=== PATIENT | female | born 1945 | race Caucasian/White ===

== ENCOUNTER 2022-09-05 18:29 | Inpatient (IN) | payer MEDICARE ==
[2022-09-05] MEDS ORDERED: ONDANSETRON 4 MG/2 ML VIAL IVP STA (18:41)
[2022-09-05] MEDS ORDERED: NALOXONE 0.4 MG/ML 1 ML VIAL IV PRN (19:53)
--- NOTE | 2022-09-05 20:01 | ED ---
General Adult HPI - General Chief complaint: Back Pain/Injury Stated complaint: compression fracture Time Seen by Provider: 09/05/22 18:30 Source: EMS Mode of arrival: EMS Limitations: physical limitation - History of Present Illness Initial comments: This is a 76-year-old female that presents emergency Department as a transfer patient from [facility]. The patient has had thoracic back pain over the last 3 weeks and went into the emergency department for evaluation. On scanning, they found compression fractures of T8 through T11 and sent the patient over for further evaluation. The patient on evaluation denied any numbness or tingling in the lower extremities and denied any urinary or fecal incontinence. The patient was resting in bed comfortably without any acute distress. The patient did have a past medical history including previous breast cancer but is not getting any active treatment and was not told that she had any metastases. The patient denied any other acute pain or complaints at this time. - Related Data Home Medications Medication Instructions Recorded Confirmed Albuterol Sulfate [Albuterol 2 puff PO RT-Q6H 09/05/22 09/05/22 Sulfate Hfa] Benazepril HCl [Lotensin] 40 mg PO DAILY 09/05/22 09/05/22 Budesonide [Pulmicort] 0.5 mg INHALATION RT-BID 09/05/22 09/05/22 Ipratropium-Albuterol Nebulize 3 ml INHALATION RT-QID PRN 09/05/22 09/05/22 [Duoneb 0.5 mg-3 mg/3 ml Soln] Lidocaine-Prilocaine Cream [Emla 1 applic TOPICAL DAILY PRN 09/05/22 09/05/22 Cream 2.5%/2.5%] Montelukast Sodium [Singulair] 10 mg PO HS 09/05/22 09/05/22 OLANZapine [ZyPREXA] 2.5 mg PO HS 09/05/22 09/05/22 amLODIPine [Norvasc] 5 mg PO DAILY 09/05/22 09/05/22 ondansetron HCL [Ondansetron HCl] 8 mg PO Q6H PRN 09/05/22 09/05/22 traMADol HCL 50 mg PO Q6H PRN 09/05/22 09/05/22 Allergies Allergy/AdvReac Type Severity Reaction Status Date / Time sulfamethoxazole AdvReac Rash/Hives Verified 09/05/22 19:04 [From ] trimethoprim [From ] AdvReac Rash/Hives Verified 09/05/22 19:04 Review of Systems ROS Statement: Those systems with pertinent positive or pertinent negative responses have been documented in the HPI. ROS Other: All systems not noted in ROS Statement are negative. Past Medical History Past Medical History: Asthma, Cancer, COPD, Hypertension Additional Past Medical History / Comment(s): Overactive Bladder, Bladder + Breast Cancer History of Any Multi-Drug Resistant Organisms: None Reported Past Surgical History: Breast Surgery, Hysterectomy Past Psychological History: No Psychological Hx Reported Smoking Status: Former smoker Past Alcohol Use History: None Reported Past Drug Use History: None Reported General Exam Limitations: no limitations General appearance: alert, in no apparent distress Head exam: Present: atraumatic, normocephalic, normal inspection Eye exam: Present: normal appearance, PERRL Pupils: Present: normal accommodation ENT exam: Present: normal exam, normal oropharynx, mucous membranes moist Neck exam: Present: normal inspection, full ROM Respiratory exam: Present: normal lung sounds bilaterally Cardiovascular Exam: Present: regular rate, normal rhythm, normal heart sounds GI/Abdominal exam: Present: soft, normal bowel sounds Extremities exam: Present: normal inspection, full ROM Back exam: Present: normal inspection, full ROM Neurological exam: Present: alert, oriented X3, CN II-XII intact Psychiatric exam: Present: normal affect, normal mood Skin exam: Present: warm, dry Course Vital Signs 09/05/22 18:32 Temperature 98.1 F Pulse Rate 105 H Respiratory 18 Rate Blood Pressure 170/81 O2 Sat by Pulse 100 Oximetry Medical Decision Making - Medical Decision Making Was pt. sent in by a medical professional or institution (, PA, LEAF STAMPER, urgent care, hospital, or fci...) When possible be specific @ -Yes, sent from the outside facility, [facility] Did you speak to anyone other than the patient for history (EMS, parent, family, police, friend...)? What history was obtained from this source @ -No Did you review nursing and triage notes (agree or disagree)? Why? @ -I reviewed and agree with nursing and triage notes Were old charts reviewed (outside hosp., previous admission, EMS record, old EKG, old radiological studies, urgent care reports/EKG's, fci records)? Report findings @ -No old charts were reviewed Differential Diagnosis (chest pain, altered mental status, abdominal pain women, abdominal pain men, vaginal bleeding, weakness, fever, dyspnea, syncope, headache, dizziness, GI bleed, back pain, seizure, CVA, palpatations, mental health)? @ -Thoracic vertebral compression fractures, pathologic fractures EKG interpreted by me (3pts min.). @ -None X-rays interpreted by me (1pt min.). @ -None done CT interpreted by me (1pt min.). @ -CT scans were performed at the outside facility U/S interpreted by me (1pt. min.). @ -None done What testing was considered but not performed or refused? (CT, X-rays, U/S, labs)? Why? @ -None What meds were considered but not given or refused? Why? @ -None Did you discuss the management of the patient with other professionals (professionals i.e. , PA, LEAF STAMPER, lab, RT, psych nurse, social security specialist, gluer, teacher, collections officer, welfare case worker)? Give summary @ -Yes, admitting physician Was smoking cessation discussed for >3mins.? @ -No Was critical care preformed (if so, how long)? @ -No Were there social determinants of health that impacted care today? How? (Homelessness, low income, unemployed, alcoholism, drug addiction, transportation, low edu. Level, literacy, decrease access to med. care, assisted, rehab)? @ -No Was there de-escalation of care discussed even if they declined (Discuss DNR or withdrawal of care, Hospice)? DNR status @ -No What co-morbidities impacted this encounter? (DM, HTN, Smoking, COPD, CAD, Cancer, CVA, ARF, Chemo, Hep., AIDS, mental health diagnosis, sleep apnea, morbid obesity)? @ -Previous breast cancer Was patient admitted / discharged? Hospital course, mention meds given and route, prescriptions, significant lab abnormalities, going to OR and other pertinent info. @ -The patient was seen and evaluated in the emergency department. As the patient arrived, I did evaluate the patient and she was resting in bed comfortable B. Vital signs were stable. All laboratory workup was reviewed from the outside facility and all were within normal limits therefore no laboratory workup was 3 drawn at this time. The patient's disc was scanned into the computer read the patient's orthopedic surgeon on-call was contacted prior to the arrival of the patient and he ought arty accepted the patient for admission and would see the patient when she is in the hospital. The patient was to be admitted to the medicine service and was accepted by Dr. Ferris. Dr. Benavides was placed on consult. The patient was admitted in stable condition. Undiagnosed new problem with uncertain prognosis? @ -No Drug Therapy requiring intensive monitoring for toxicity (Heparin, Nitro, Insulin, Cardizem)? @ -No Were any procedures done? @ -No Diagnosis/symptom? @ -Thoracic spinal compression fractures of T8 through T11 Acute, or Chronic, or Acute on Chronic? @ -Acute Uncomplicated (without systemic symptoms) or Complicated (systemic symptoms)? @ -Uncomplicated Side effects of treatment? @ -No Exacerbation, Progression, or Severe Exacerbation? @ -No Poses a threat to life or bodily function? How? (Chest pain, USA, PA, pneumonia, PE, COPD, DKA, ARF, appy, cholecystitis, CVA, Diverticulitis, Homicidal, Suicidal, threat to staff... and all critical care pts) @ -No Disposition Clinical Impression: Compression fracture of T11 vertebra, Compression fracture of T8 vertebra, Compression fracture of T9 vertebra, Compression fracture of T10 vertebra Disposition: ADMITTED IP TO THIS [facility] Condition: Stable Is patient prescribed a controlled substance at d/c from ED?: No Referrals: All Cullen DO [Primary Care Provider] - 1-2 days Time of Disposition: 19:00 Decision to Admit Reason: Admit from EC Decision Date: 09/05/22 Decision Time: 19:00
--- NOTE | 2022-09-06 02:11 | P.HPIM ---
History of Present Illness H&P Date: 09/05/22 Chief Complaint: back pain 76 year old female with breast cancer s/p lumpectomy and chemotherapy last session > 5 weeks ago patient transferred form [facility] for ortho spine evaluation , she presented there with new sudden worsening of thoracic back pain that has been going on for about 3 weeks , denies any falls or trauma , denies any radiculopathy , she had a battery of workup , electrolytes and blood work overall unremarkable, CT of the spine showed compression fracture of T8-T11 , with spinal stenosis of the lumbar spine again patient denies any focal neuro deficits, denies any numbness , tingling or weakness in her extremities , denies any urinary or fecal retention or incontinence Review of Systems Pertinent positives as noted in HPI. All other systems were reviewed and are negative Past Medical History Past Medical History: Asthma, Cancer, COPD, Hypertension Additional Past Medical History / Comment(s): Overactive Bladder, Bladder + [facility] Cancer History of Any Multi-Drug Resistant Organisms: None Reported Past Surgical History: Breast Surgery, Hysterectomy Past Psychological History: No Psychological Hx Reported Smoking Status: Former smoker Past Alcohol Use History: None Reported Past Drug Use History: None Reported Medications and Allergies Home Medications Medication Instructions Recorded Confirmed Type Albuterol Sulfate [Albuterol 2 puff PO RT-Q6H 09/05/22 09/05/22 History Sulfate Hfa] Benazepril HCl [Lotensin] 40 mg PO DAILY 09/05/22 09/05/22 History Budesonide [Pulmicort] 0.5 mg INHALATION RT-BID 09/05/22 09/05/22 History Ipratropium-Albuterol Nebulize 3 ml INHALATION RT-QID PRN 09/05/22 09/05/22 History [Duoneb 0.5 mg-3 mg/3 ml Soln] Lidocaine-Prilocaine Cream [Emla 1 applic TOPICAL DAILY PRN 09/05/22 09/05/22 History Cream 2.5%/2.5%] Montelukast Sodium [Singulair] 10 mg PO HS 09/05/22 09/05/22 History OLANZapine [ZyPREXA] 2.5 mg PO HS 09/05/22 09/05/22 History amLODIPine [Norvasc] 5 mg PO DAILY 09/05/22 09/05/22 History ondansetron HCL [Ondansetron HCl] 8 mg PO Q6H PRN 09/05/22 09/05/22 History traMADol HCL 50 mg PO Q6H PRN 09/05/22 09/05/22 History Allergies Allergy/AdvReac Type Severity Reaction Status Date / Time sulfamethoxazole AdvReac Rash/Hives Verified 09/05/22 19:04 [From ] trimethoprim [From ] AdvReac Rash/Hives Verified 09/05/22 19:04 Physical Exam Vitals: Vital Signs Temp Pulse Resp BP Pulse Ox 09/06/22 01:38 82 14 130/69 100 09/05/22 22:34 93 14 136/49 100 09/05/22 18:32 98.1 F 105 H 18 170/81 100 Intake and Output 09/05/22 09/05/22 09/06/22 14:59 22:59 06:59 Other: Weight 55.338 kg Constitutional: No acute distress, conversant, pleasant Eyes: Anicteric sclerae, moist conjunctiva, Pupils equal round reactive to light ENMT: NC/AT Oropharynx clear, no erythema, or exudates Neck: Supple, no masses, or JVD No carotid bruits No thyromegaly Lungs: Clear to auscultation Clear to percussion Normal respiratory effort, no accessory muscle use Cardiovascular: Heart regular in rate and rhythm, No murmurs, gallops, or rubs No peripheral edema Abdominal: Soft Nontender, no guarding, rebound or rigidity Abdomen moving with respiration Normoactive bowel sounds Skin: Normal temperature, tone, texture, turgor Extremities: No digital cyanosis No clubbing Pedal pulses intact and symmetrical Radial pulses intact and symmetrical No calf tenderness Psychiatric: Alert and oriented to person, place and time Appropriate affect fair judgment Neuro Muscles Strength 4/5 in all 4 extremities Sensation to light touch grossly present throughout Cranial nerves II-XII grossly intact Lymphatics: no palpable cervical or supraclavicular lymph nodes Assessment and Plan Assessment: compression fracture of T8-T11 history of breast cancer s/p lumpectomy and chemotherapy pain control CT imaging showed compression fracture of T8-T11 along with lumbar spinal stenosis ortho spine consult PT eval health care social worker consult , patient requesting ROSS placement blood work and transfer papers reviewed, CBC and metabolic panel overall u nremarkable chronic conditions COPD compensated , resume inhalers full code DVT PPX heparin sc tid
[2022-09-06] MEDS: IPRATROPIUM-ALBUTEROL 3 ML NEB INHALATION PRN ×3 (07:18→19:34)
[2022-09-06] MEDS: BUDESONIDE 0.5 MG/2 ML NEBU INHALATION SCH ×2 (07:18→19:35)
[2022-09-06] MEDS: amLODIPine 5 MG TAB PO SCH (08:06)
[2022-09-06] MEDS: HYDROcodone/APAP 5-325MG 1 EACH TAB PO PRN ×3 (08:07→21:00)
[2022-09-06] MEDS: lisinopriL 20 MG TAB PO SCH (08:07)
[2022-09-06] MEDS ORDERED: MORPHINE SULFATE 2 MG/ML SYRINGE IVP PRN (09:05)
--- NOTE | 2022-09-06 09:22 | P.CNOR ---
History of Present Illness - [facility] Consult date: 09/06/22 Requesting physician: Rodríguez Lane Consult reason: back pain History of present illness: History of Presenting Illness Patient is a pleasant 76-year-old female who presented to the ER via transfer from [facility]. Patient presented to their ER for thoracic pain that has been ongoing for approx 4 weeks, imaging at [facility] reported Compression fractures T8-T11. Patient denies any injuries or falls. She currently denies any radicular pain or numbness/tingling to bilateral upper or lower extremities. Patient states she currently lives with her daughter. She is normally independent and does not use any assisted devices. Patient denies any other orthopedic history. Patient does have a history of left breast cancer that was diagnosed in March 2022. She states she did 7 rounds of chemotherapy and her last treatment was 5 weeks ago. She denies any knowledge of metastatic disease. Review of Systems Pertinent positives and negatives as discussed in HPI, a complete review of systems was performed and all other systems are negative. Physical Examination General: The patient is awake and alert, in no acute distress Skin: Skin is warm and dry with no obvious rashes or lesions. Hairy patches absent, no dorsal skin dimples, no cafe au lait spots, and no surgical incisions. Eye: Pupils are equal, round and reactive to light, extra-ocular movements are intact; there is normal conjunctiva bilaterally. Neck: The neck is supple, there is no tenderness and ROM intact. Cardiovascular: There is a regular rate and rhythm. No murmur, rub or gallop is appreciated. Respiratory: Lungs are clear to auscultation, respirations are non-labored, breath sounds are equal. Gastrointestinal: Soft, non-distended, non-tender abdomen. Back: There is tenderness to palpation in the midline lumbar and thoracic region. There is no obvious deformity. Musculoskeletal: ROM limited secondary to pain and stiffness. Shoulder abduction 5/5, elbow flexors 5/5, wrist dorsiflexors 5/5. finger abductor 5/5, bolt machine operator 5/5, hip flexor 5/5, knee flexor 5/5, ankle dorsiflexor 5/5, ankle plantarflexion 5/5 and extensor hallucis 5/5. Neurological: CN 2-12 intact. There are no obvious motor or sensory deficits. Movement and coordination equal and intact. Sensory exam to light touch intact C5-T1 and intact from L2-S1. Reflexes 2/4 in bilateral upper and lower extremities. Negative Hoffmans, babinski, and clonus signs. Psychiatric: Cooperative, appropriate mood & affect, normal judgment. Assessment and Plan Possible T8-T11 compression fracture Thoracic pain -Appreciate consult and team management -Ordered CT of Thoracic Spine -TLSO brace, script left on chart -Pain management, recommend anti-inflammatory or steroids if needed. -PT/OT, WBAT We will continue to follow patient through hospital stay. I reviewed and discussed this case with my attending Dr. Benavides, whom has reviewed this chart and films and is in agreement with assessment and plan of care as outlined above. I have personally seen and examined the patient, performed the documentation and the assessment and plan as written. Number of minutes spent on the visit: 20m. Past Medical History Past Medical History: Asthma, Cancer, COPD, Hypertension Additional Past Medical History / Comment(s): Overactive Bladder, Bladder + Breast Cancer History of Any Multi-Drug Resistant Organisms: None Reported Past Surgical History: Breast Surgery, Hysterectomy Past Psychological History: No Psychological Hx Reported Smoking Status: Former smoker Past Alcohol Use History: None Reported Past Drug Use History: None Reported Medications and Allergies Home Medications Medication Instructions Recorded Confirmed Type Albuterol Sulfate [Albuterol 2 puff PO RT-Q6H 09/05/22 09/05/22 History Sulfate Hfa] Benazepril HCl [Lotensin] 40 mg PO DAILY 09/05/22 09/05/22 History Budesonide [Pulmicort] 0.5 mg INHALATION RT-BID 09/05/22 09/05/22 History Ipratropium-Albuterol Nebulize 3 ml INHALATION RT-QID PRN 09/05/22 09/05/22 History [Duoneb 0.5 mg-3 mg/3 ml Soln] Lidocaine-Prilocaine Cream [Emla 1 applic TOPICAL DAILY PRN 09/05/22 09/05/22 History Cream 2.5%/2.5%] Montelukast Sodium [Singulair] 10 mg PO HS 09/05/22 09/05/22 History OLANZapine [ZyPREXA] 2.5 mg PO HS 09/05/22 09/05/22 History amLODIPine [Norvasc] 5 mg PO DAILY 09/05/22 09/05/22 History ondansetron HCL [Ondansetron HCl] 8 mg PO Q6H PRN 09/05/22 09/05/22 History traMADol HCL 50 mg PO Q6H PRN 09/05/22 09/05/22 History Allergies Allergy/AdvReac Type Severity Reaction Status Date / Time sulfamethoxazole AdvReac Rash/Hives Verified 09/05/22 19:04 [From ] trimethoprim [From ] AdvReac Rash/Hives Verified 09/05/22 19:04
--- NOTE | 2022-09-06 10:30 | CT ---
EXAMINATION TYPE: CT thoracic spine wo con DATE OF EXAM: 09/06/2022 COMPARISON: None HISTORY: Lower back pain, multiple thoracic compression fractures-lower CT DLP: 567.3 mGycm Automated exposure control for dose reduction was used. Unenhanced CT of the thoracic spine was performed with axial coronal and sagittal images reviewed. Jett ne and soft tissue window settings are submitted. FINDINGS: There are mild to moderate compression fractures which appear to be acute extending from T9 through T 12. At T9 there is mild sclerosis and loss of height estimated at 10%. No bony retropulsion. Paraspinal h ematoma. No bony destructive process. Middle and posterior columns are intact. At T10 loss of height is estimated at 20-30%. No definite sclerosis or bony destructive process. No b chris retropulsion. Paraspinal hematoma seen. Middle and posterior columns are intact. At T11 there is moderate compression fracture with loss of height estimated at 50%. No definite bony retropulsion. Bony sclerosis noted without definite destructive process. Paraspinal hematoma seen. Mi ddle and posterior columns are intact. At T12 there is a mild superior endplate compression fracture without significant loss of height. No bony retropulsion seen. Paraspinal hematoma noted. At L1 appears to be mild chronic loss of height of the superior endplate as well as at T7. No additio nal fractures are seen. No obvious bony destructive process evident. IMPRESSION: 1. Acute compression fractures T9-T12 as discussed above.
[2022-09-06] MEDS: HEPARIN SODIUM,PORCINE/PF 5,000 UNIT/0.5 ML SYRINGE SQ SCH ×2 (10:38→15:45)
[2022-09-06] MEDS: SODIUM CHLORIDE 0.45% 1,000 ML IV SCH ×2 (10:42→22:50)
[2022-09-06] MEDS: ALBUTEROL HFA INHALER INHALATION SCH ×2 (11:59→19:35)
--- NOTE | 2022-09-06 14:44 | P.PN ---
Subjective Progress Note Date: 09/06/22 Patient is a 76-year-old female with breast cancer status post lumpectomy on chemotherapy with last session greater than 4 weeks ago who was transferred here from [facility] for orthospine evaluation due to multiple thoracic spine compression fractures. Patient also has a history of asthma, COPD, and hypertension. In the ER at [facility] she underwent a CT chest which showed a compression fracture of T8 through T10 with possible T11 compression fracture. Her labs were within normal limits. She was evaluated by orthospine who recommended a TLSO brace and pain management. Patient seen and examined at bedside. She states that her pain is controlled when in bed, however when she gets up and moves she has severe back pain. She does state when she sits forward in bed she feels the pain again come back in her thoracic spine. She denies any nausea or vomiting. She states she's been getting weaker at home. She is wondering if she would benefit from rehab. General: nontoxic, no distress, frail, appears at stated age Derm: warm, dry Head: atraumatic, normocephalic, symmetric Eyes: EOMI, no lid lag, anicteric sclera Mouth: no lip lesion, mucus membranes moist Cardiovascular: S1S2 reg, no murmur, positive posterior tibial pulse bilateral, Lungs: Decreased breath sounds bilateral, no rhonchi, no rales , no accessory muscle use Ext: no gross muscle atrophy, no edema, no contractures, kyphosis Neuro: CN II-XI grossly intact, no focal neuro deficits Psych: Alert, oriented, appropriate affect Assessment/plan: Intractable back pain secondary to T8 through T11 compression fractures suspect related to breast cancer -Orthopedic spine surgery recommendations appreciated. Plan is for TLSO brace -Repeat CT here demonstrates T9 through T12 compression fractures with possible paraspinal hematoma. We'll discuss with orthospine. -Add morphine IV push, continue with [place] -PT/OT evaluation. 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 Active Medications Generic Name Dose Route Start Last Admin Trade Name Freq PRN Reason Stop Dose Admin Hydrocodone Bitart/Acetaminophen 1 each 09/06/22 02:03 09/06/22 08:07 Hydrocodone/Apap 5-325mg 1 Each Tab PO 1 each Q4HR PRN Administration Pain Albuterol Sulfate 2 puff 09/06/22 14:00 09/06/22 11:59 Albuterol Hfa Inhaler INHALATION Not Given RT-Q6H SNOW Albuterol/Ipratropium 3 ml 09/06/22 02:19 09/06/22 11:59 Ipratropium-Albuterol 3 Ml Neb INHALATION 3 ml RT-QID PRN Administration Shortness Of Breath Or Wheezing Amlodipine Besylate 5 mg 09/06/22 09:00 09/06/22 08:06 Amlodipine 5 Mg Tab PO 5 mg DAILY SNOW Administration Budesonide 0.5 mg 09/06/22 08:00 09/06/22 07:18 Budesonide 0.5 Mg/2 Ml Nebu INHALATION 0.5 mg RT-BID SNOW Administration Heparin Sodium (Porcine) 5,000 unit 09/06/22 08:00 09/06/22 10:38 Heparin Sodium,Porcine/Pf 5,000 Unit/0.5 Ml Syringe SQ Not Given Q8HR SNOW Sodium Chloride 1,000 mls @ 75 mls/hr 09/06/22 09:15 09/06/22 10:42 Saline 0.45% IV 75 mls/hr .[id number] SNOW Administration Lisinopril 40 mg 09/06/22 09:00 09/06/22 08:07 Lisinopril 20 Mg Tab PO 40 mg DAILY SNOW Administration Montelukast Sodium 10 mg 09/06/22 21:00 Montelukast 10 Mg Tab PO HS SNOW Morphine Sulfate 2 mg 09/06/22 09:05 Morphine Sulfate 2 Mg/Ml Syringe IVP Q6HR PRN Pain/Discomfort Naloxone HCl 0.2 mg 09/05/22 19:53 Naloxone 0.4 Mg/Ml 1 Ml Vial IV Q2M PRN Opioid Reversal Olanzapine 2.5 mg 09/06/22 21:00 Olanzapine 2.5 Mg Tab PO HS [facility] Objective - Vital Signs Vital signs: Vital Signs Temp 98.4 F 09/06/22 10:42 Pulse 100 09/06/22 12:09 Resp 18 09/06/22 10:42 BP 117/70 09/06/22 10:42 Pulse Ox 95 09/06/22 10:42 FiO2 Intake & Output 09/05/22 09/06/22 09/06/22 18:59 06:59 18:59 Weight 55.338 kg 55.338 kg Other: # Voids 1
--- NOTE | 2022-09-06 15:11 | P.PN ---
Progress Note - Text Progress Note Date: 09/06/22 CT is reviewed of the thoracic and lumbar spine which demonstrates multiple compression type fractures from T9 to T12. T11 is about 50% compressed although it is sclerotic and likely a little bit older T9 appears new work with 30% compression and wedging. These all contribute to a kyphotic alignment at these levels. No retropulsion or severe stenosis noted otherwise. Would recommend MRI of the thoracic spine to visualize the acuity of fractures as she may be a candidate for kyphoplasty. Would likely need kyphoplasty in 2 T9 we will see how MRI looks. She potentially could be boarded for Monday for this. patient does have a history of breast cancer that this also wants MRI to look for any metastatic lesions or possible pathologic nature to these fractures. Kyphoplasty would allow for biopsy at the same time.
--- NOTE | 2022-09-06 18:06 | P.CONS ---
History of Present Illness - Reason for Consult Consult date: 09/06/22 breast cancer Requesting physician: Lucila Ferris - Chief Complaint back pain - History of Present Illness Ms Chambers is a 76 yo female pt of Dr. Huynh with PMH including superficial bladder cancer 7 years ago, follows with Urology out of town regularly, smoker quitting 2021, adopted with unknown family Hx. She had a CT chest done in early 03/04 because of SOB and long-standing history of smoking, Incidentally noted a lump in the left breast. She had core biopsy done which showed invasive ductal carcinoma, grade 3. Tumor was ER/NE negative and HER-2 positive at 3+ on IHC. Bilateral diagnostic mammogram on 03/22/22, showed heterogeneously dense breasts, with irregular spiculated mass in the upper inner left breast with fine pleomorphic calcifications. Ultrasound on 03/24/22 showed 1.5 x 1.9 x 1.8 cm mass at 11:00, 5 cm from the nipple. An enlarged lymph node was noted in the left axilla measuring 1.9 x 0.9 x 1.4 cm. Lumpectomy and SLNB 04/13/22, followed by completion lymphadenectomy. This revealed grade 3 invasive ductal carcinoma, measuring 2.4 x 2 x 1.2 cm. There was extensive intraductal component. All margins were negative, but anginal lymphatic invasion was identified in the superior margin. 2 of 2 sentinel nodes were involved with the largest measuring 2.2 cm. Additional 6 nodes were then dissected with stool involved with the largest again measuring 2 cm. Extranodal extension was noted greater than 2 mm. PET showed a single focus of increased uptake with SUV 6.12 in the posterior medial right lobe of the liver. There was no other evidence of FDG avid metastases. US of the liver confirmed a hypodensity, 1.9 cm in maximal dimension, corresponding to the area of uptake. Therefore liver biopsy was ordered, she was unable to tolerate the liver biopsy so, it was decided to start her on treatment, and follow the liver lesion clinically. Given her performance status, she was started on Taxol with Herceptin+ Perjeta. She has Hx of chronic abd pain and diarrhea fluctuating with constipation but, despite medication changes and supportive care her symptoms progressed to include incontinence of stool, decline in energy and appetite. Chemo was stopped, with plans to cont on Mab alone. She has not been seen in office since mid Jul. Pt is a transfer from [facility]. Admited with c/o thoracic back pain x 3 weeks, scans show compression fractures of T8 through T11, pt sent to [facility] for Orthopedic Spine evaluation. She denies numbness or tingling in the lower extremities, no urinary or fecal incontinence. The patient was in chair, no distress. Review of Systems 10 point ROS is neg except as stated in HPI Past Medical History Past Medical History: Asthma, Cancer, COPD, Hypertension Additional Past Medical History / Comment(s): Overactive Bladder, Bladder + Breast Cancer History of Any Multi-Drug Resistant Organisms: None Reported Past Surgical History: Breast Surgery, Hysterectomy Past Psychological History: No Psychological Hx Reported Smoking Status: Former smoker Past Alcohol Use History: None Reported Past Drug Use History: None Reported - Past Family History Daughter(s) Family Medical History: Hypertension Medications and Allergies Home Medications Medication Instructions Recorded Confirmed Type Albuterol Sulfate [Albuterol 2 puff PO RT-Q6H 09/05/22 09/05/22 History Sulfate Hfa] Benazepril HCl [Lotensin] 40 mg PO DAILY 09/05/22 09/05/22 History Budesonide [Pulmicort] 0.5 mg INHALATION RT-BID 09/05/22 09/05/22 History Ipratropium-Albuterol Nebulize 3 ml INHALATION RT-QID PRN 09/05/22 09/05/22 History [Duoneb 0.5 mg-3 mg/3 ml Soln] Lidocaine-Prilocaine Cream [Emla 1 applic TOPICAL DAILY PRN 09/05/22 09/05/22 History Cream 2.5%/2.5%] Montelukast Sodium [Singulair] 10 mg PO HS 09/05/22 09/05/22 History OLANZapine [ZyPREXA] 2.5 mg PO HS 09/05/22 09/05/22 History amLODIPine [Norvasc] 5 mg PO DAILY 09/05/22 09/05/22 History ondansetron HCL [Ondansetron HCl] 8 mg PO Q6H PRN 09/05/22 09/05/22 History traMADol HCL 50 mg PO Q6H PRN 09/05/22 09/05/22 History Allergies Allergy/AdvReac Type Severity Reaction Status Date / Time sulfamethoxazole AdvReac Rash/Hives Verified 09/05/22 19:04 [From ] trimethoprim [From ] AdvReac Rash/Hives Verified 09/05/22 19:04 Physical Exam Vitals: Vital Signs Temp Pulse Resp BP Pulse Ox 09/06/22 08:06 102 H 18 140/60 98 09/06/22 07:40 99 09/06/22 07:21 98 98 09/06/22 06:17 84 16 150/63 99 09/06/22 01:38 82 14 130/69 100 09/05/22 22:34 93 14 136/49 100 09/05/22 18:32 98.1 F 105 H 18 170/81 100 Intake and Output 09/05/22 09/06/22 09/06/22 22:59 06:59 14:59 Other: Weight 55.338 kg - Constitutional General appearance: cooperative, no acute distress, thin - EENT Eyes: anicteric sclerae, EOMI ENT: hearing grossly normal, normal oropharynx - Neck Neck: no lymphadenopathy - Respiratory Respiratory: bilateral: CTA - Cardiovascular Rhythm: regular Heart sounds: normal: S1, S2 Abnormal Heart Sounds: no systolic murmur, no diastolic murmur, no rub, no S3 Gallop, no S4 Gallop, no click, no other leg Peripheral Edema: bilateral: None - Gastrointestinal General gastrointestinal: no absent bowel sounds, no decreased bowel sounds, no distended, no hepatomegaly, no hyperactive bowel sounds, normal bowel sounds, no organomegaly, no rigid, no scaphoid, soft, no splenomegaly, no tenderness, no umbilical hernia, no ventral hernia - Integumentary Integumentary: normal - Neurologic Neurologic: CNII-XII intact - Musculoskeletal Musculoskeletal: generalized weakness, strength equal bilaterally - Psychiatric Psychiatric: A&O x's 3, appropriate affect, intact judgment & insight Results Comments: thoracic spine CT Assessment and Plan (1) Compression fracture Current Visit: Yes Status: Acute Priority: High Code(s): RTR8770 - SNOMED Code(s): 973255377 (2) Breast cancer Current Visit: Yes Status: Acute Priority: High Code(s): C50.919 - MALIGNANT NEOPLASM OF UNSP SITE OF UNSPECIFIED FEMALE BREAST SNOMED Code(s): 064806655 Plan: Compression fx -from review of imaging reports, does not appear to be pathological in nature. Pt has no Hx of mets to the bone -Orthopedic spine Surgeon has seen pt -if any surgery, anticipate specimen to be sent for pathology Breast cancer -Had cycle 3 day 1 of adjuvant chemo. Stopped due to diarrhea and progressive weakness. Last treatment was 07/27 -No treatment plans for right now. -If pt has surgery no f/u until after healed
[2022-09-06] MEDS ORDERED: OLANZapine 2.5 MG TAB PO SCH (21:00)
[2022-09-06] MEDS ORDERED: MONTELUKAST 10 MG TAB PO SCH (21:00)
[2022-09-07] MEDS: HEPARIN SODIUM,PORCINE/PF 5,000 UNIT/0.5 ML SYRINGE SQ SCH ×2 (00:37→09:03)
[2022-09-07] MEDS: ALBUTEROL HFA INHALER INHALATION SCH ×4 (00:56→11:42)
[2022-09-07] MEDS: IPRATROPIUM-ALBUTEROL 3 ML NEB INHALATION PRN (08:41)
[2022-09-07] MEDS: BUDESONIDE 0.5 MG/2 ML NEBU INHALATION SCH (08:41)
[2022-09-07] MEDS: lisinopriL 20 MG TAB PO SCH (09:03)
[2022-09-07] MEDS: amLODIPine 5 MG TAB PO SCH (09:03)
[2022-09-07] MEDS: HYDROcodone/APAP 5-325MG 1 EACH TAB PO PRN (09:16)
[2022-09-07 09:32] VITALS: RESP 18
[2022-09-07] MEDS ORDERED: LOPERAMIDE 2 MG CAP PO PRN (09:43)
[2022-09-07] MEDS: SODIUM CHLORIDE 0.45% 1,000 ML IV SCH (09:54)
--- NOTE | 2022-09-07 09:58 | P.PN ---
Subjective Progress Note Date: 09/07/22 Principal diagnosis: Back pain Possible multiple thoracic compression fractures Patient seen and examined this morning. Patient is currently resting in bed. TLSO brace is at bedside. Patient states her pain is managed on current regimen. She states she has been ambulatory within room to restroom, tolerating activity ok. Patient reports this morning that she declines obtaining MRI of the lumbar spine. Patient states she does not want to go through any more testing or any type of surgeries. Informed patient of benefits and risks, patient continues to decline. Patient denies any numbness or tingling to bilateral lower extremities. Informed patient that she may follow up in office. Patient verbalizes understanding. Patient has been afebrile, denies nausea/vomiting, or chest pain. Objective - Vital Signs Vital signs: Vital Signs Temp 98.3 F 09/07/22 06:47 Pulse 91 09/07/22 06:47 Resp 17 09/07/22 06:47 BP 169/75 09/07/22 06:47 Pulse Ox 99 09/07/22 06:47 FiO2 Intake & Output 09/06/22 09/07/22 09/07/22 18:59 06:59 18:59 Other: Voiding Method Toilet # Voids 2 6 # Bowel Movements 2 - Exam Physical Examination General: The patient is awake and alert, in no acute distress Skin: Skin is warm and dry with no obvious rashes or lesions. Hairy patches a bsent, no dorsal skin dimples, no cafe au lait spots, and no surgical incisions. Eye: Pupils are equal, round and reactive to light, extra-ocular movements are intact; there is normal conjunctiva bilaterally. Neck: The neck is supple, there is no tenderness and ROM intact. Cardiovascular: There is a regular rate and rhythm. No murmur, rub or gallop is appreciated. Respiratory: Lungs are clear to auscultation, respirations are non-labored, breath sounds are equal. Gastrointestinal: Soft, non-distended, non-tender abdomen. Back: There is slight tenderness to palpation in the midline thoracic and lumbar region. There is no obvious deformity . Musculoskeletal: ROM limited secondary to pain and stiffness from surgical procedure. Muscle strength in all major muscle groups of bilateral upper extremities 5/5, bilateral lower extremities 4/5. Neurological: CN 2-12 intact. There are no obvious motor or sensory deficits. Movement and coordination equal and intact. Sensory exam to light touch intact C5-T1 and intact from L2-S1. Reflexes 2/4 in bilateral upper and lower extremities. Negative Hoffmans, babinski, and clonus signs. Psychiatric: Cooperative, appropriate mood & affect, normal judgment. Assessment and Plan Assessment: Possible T9-T12 compression fractures Thoracic pain Plan: -Appreciate consult and team management -TLSO brace -Pain management, recommend anti-inflammatory or steroids if needed. -PT/OT, WBAT Patient may follow-up in office, orthopedics is signing off at this time. Please feel free to reach out for any questions or concerns. I reviewed and discussed this case with my attending Dr. Benavides, whom has reviewed this chart and films and is in agreement with assessment and plan of care as outlined above. I have personally seen and examined the patient, performed the documentation and the assessment and plan as written. Number of minutes spent on the visit: 20m.
[2022-09-07 10:46] LABS: HCT 32.2 % (37.2-46.3); HGB 10.1 g/dL (12.0-15.0); MCH 31.5 pg (27.0-32.0); MCHC 31.4 g/dL (32.0-37.0); MCV 100.3 fL (80.0-97.0); Mean Platelet Volume 9.4 fL (9.5-12.2); NRBC Per 100 WBC 0 /100 WBCS (0.0-0.0); Platelet Count 357 X 10*3/uL (140-440); RBC 3.21 X 10*6/uL (4.10-5.20); RDW 12.7 % (11.5-14.5); WBC 8.48 X 10*3/uL (4.50-10.00)
[2022-09-07 11:03] LABS: African American GFR (CKD) 109.3 (60.0-200.0); Anion Gap 7.9 mmol/L (10.00-18.00); BUN/Creat Ratio 12.74 Ratio (12.00-20.00); Blood Urea Nitrogen 6.2 mg/dL (9.0-27.0); Calcium 9.1 mg/dL (8.7-10.3); Carbon Dioxide 30.6 mmol/L (20.0-27.5); Non-African American GFR(CKD) 94.3 (60.0-200.0); Potassium 3.7 mmol/L (3.5-5.5)
[2022-09-07 14:13] VITALS: BP 123/65; PULSE 92; TEMP 97.9
--- NOTE | 2022-09-07 15:17 | P.DS ---
Providers Date of admission: 09/05/22 19:53 Expected date of discharge: 09/07/22 Attending physician: Lucila Ferris DO Consults: 09/05/22 19:53 Consult Physician Routine Consulting Provider: Fernando Benavides Consult Reason/Comments: Multiple thoracic compression fractures Do you want consulting provider notified?: Already Contacted 09/06/22 09:04 Consult Physician Routine Consulting Provider: Josesito Huynh Consult Reason/Comments: breast cancer Do you want consulting provider notified?: Yes Primary care physician: All Cullen [facility] Course: Discharge Diagnosis: T9 through T12 compression fractures Intractable back pain Breast cancer status post lumpectomy and 3 cycles of chemotherapy, possible liver met COPD without exacerbation Hypertension Hospital Course: Patient is a 76-year-old female with breast cancer status post lumpectomy on chemotherapy with last session greater than 4 weeks ago who was transferred here from [facility] for orthospine evaluation due to multiple thoracic spine compression fractures. Patient also has a history of asthma, COPD, and hypertension. In the ER at [facility] she underwent a CT chest which showed a compression fracture of T8 through T10 with possible T11 compression fracture. Her labs were within normal limits. She was evaluated by orthospine who recommended a TLSO brace and pain management. Repeat CT confirmed multiple compression fractures and paraspinal hematoma. Orthospine had initially recommended MRI to evaluate further if these could possibly be metastatic lesions versus osteoporotic lesions. Patient did refuse MRI testing and she felt it would not change her course. She was seen by physical and occupational therapy and was independent with most ADLs are standby assist. She did not qualify for rehab. She was subsequently discharged home with home care. She was started on Monterey which provided adequate pain control. Follow-up: Patient is to wear TLSO brace when up and ambulating, she'll follow- up with Dr. Benavides in 2 weeks, she'll follow-up with Dr. Huynh as needed as she has elected to not undergo any more systemic treatment for her cancer. She'll follow up with her primary care physician Dr. Cullen in 1-2 days. She was given a prescription for Monterey to help with pain control. She was given explicit instructions on no bending or twisting and not to lift greater than 5 pounds. Patient seen and examined at bedside. She states that her pain is well- controlled with the Monterey. She is frustrated that she cannot go to rehab but does admit she is independent in most of her activities of daily living. She is worried about causing too much stress for her daughter. We discussed that she has no medical indication for rehabilitation at this point in time. She indicates she does not want to undergo MRI sheathing so will not change her overall outcome or process. I informed her that we would like to evaluate [facility] er whether these can be metastatic versus osteoporotic lesions, she continued to decline further testing area Vital signs reviewed and stable. General: nontoxic, no distress, appears at stated age Derm: warm, dry Head: atraumatic, normocephalic, symmetric Eyes: EOMI, no lid lag, anicteric sclera Mouth: no lip lesion, mucus membranes moist Cardiovascular: S1S2 reg, no murmur, positive posterior tibial pulse bilateral, Lungs: CTA bilateral, no rhonchi, no rales , no accessory muscle use, + kyphosis Neuro: CN II-XI grossly intact, no focal neuro deficits Psych: Alert, oriented, appropriate affect A total of 25 minutes of time were spent preparing this complex discharge summary. Patient was discharged on 09/07/22. Patient Condition at Discharge: Stable Plan - Discharge Summary Discharge Rx Participant: Yes New Discharge Prescriptions: New HYDROcodone/APAP 5-325MG [Monterey 5-325] 1 each PO Q6HR PRN #28 tab PRN Reason: Pain Continue ondansetron HCL [Zofran] 8 mg PO Q6H PRN PRN Reason: Nausea And Vomiting Ipratropium-Albuterol Nebulize [Duoneb 0.5 mg-3 mg/3 ml Soln] 3 ml INHALATION RT-QID PRN PRN Reason: Shortness Of Breath amLODIPine [Norvasc] 5 mg PO DAILY Budesonide [Pulmicort] 0.5 mg INHALATION RT-BID Albuterol Sulfate [Albuterol Sulfate Hfa] 2 puff PO RT-Q6H OLANZapine [ZyPREXA] 2.5 mg PO HS Montelukast Sodium [Singulair] 10 mg PO HS Lidocaine-Prilocaine Cream [Emla Cream 2.5%/2.5%] 1 applic TOPICAL DAILY PRN PRN Reason: PORT ACCESS Benazepril HCl [Lotensin] 40 mg PO DAILY Discontinued traMADol HCL 50 mg PO Q6H PRN PRN Reason: Pain Discharge Medication List Albuterol Sulfate [Albuterol Sulfate Hfa] 2 puff PO RT-Q6H 09/05/22 [History] Benazepril HCl [Lotensin] 40 mg PO DAILY 09/05/22 [History] Budesonide [Pulmicort] 0.5 mg INHALATION RT-BID 09/05/22 [History] Ipratropium-Albuterol Nebulize [Duoneb 0.5 mg-3 mg/3 ml Soln] 3 ml INHALATION RT-QID PRN 09/05/22 [History] Lidocaine-Prilocaine Cream [Emla Cream 2.5%/2.5%] 1 applic TOPICAL DAILY PRN 09/05/22 [History] Montelukast Sodium [Singulair] 10 mg PO HS 09/05/22 [History] OLANZapine [ZyPREXA] 2.5 mg PO HS 09/05/22 [History] amLODIPine [Norvasc] 5 mg PO DAILY 09/05/22 [History] ondansetron HCL [Zofran] 8 mg PO Q6H PRN 09/05/22 [History] HYDROcodone/APAP 5-325MG [Monterey 5-325] 1 each PO Q6HR PRN #28 tab 09/07/22 [Rx] Follow up Appointment(s)/Referral(s): Josesito Huynh MD [STAFF PHYSICIAN] - As Needed (Pt can call for f/u if she wants to be seen by Oncologist) All Cullen DO [Primary Care Provider] - 09/12/22 1:45 pm [facility], [NON-STAFF] - 1-2 Days ([facility] will call you to set up home care visits. ) Fernando Benavides DO [Doctor of Osteopathic Medicine] - 09/15/22 9:30 am [facility] Cordero [NON-STAFF] - As Needed (Supplier of TLSO brace) Patient Instructions/Handouts: Hydrocodone/Acetaminophen (By mouth), Chronic Back Pain (DC) Activity/Diet/Wound Care/Special Instructions: Activity: No bending, lifting more than 5 pounds, or twisting Wear TLSO brace when up and walking Diet: regular Discharge Disposition: HOME SELF-CARE
== END 2022-09-07 14:49 | disposition home or self-care (01) | DRG 543 ==
LOC: EC 18:29 → 4SSUR 19:53
PROVIDERS: ADMIT Internal Medicine; ATTEND Internal Medicine
DX: M48.54XA Collapsed vertebra, not elsewhere classified, thoracic region, initial encounter for fracture (principal); C78.7 Secondary malignant neoplasm of liver and intrahepatic bile duct; Z17.1 Estrogen receptor negative status [ER-]; C50.212 Malignant neoplasm of upper-inner quadrant of left female breast; M48.061 Spinal stenosis, lumbar region without neurogenic claudication; M79.81 Nontraumatic hematoma of soft tissue; I10 Essential (primary) hypertension; J44.9 Chronic obstructive pulmonary disease, unspecified; N32.81 Overactive bladder; Z66 Do not resuscitate; Z85.3 Personal history of malignant neoplasm of breast; Z90.710 Acquired absence of both cervix and uterus; Z79.899 Other long term (current) drug therapy; Z88.2 Allergy status to sulfonamides; Z88.1 Allergy status to other antibiotic agents; Z85.51 Personal history of malignant neoplasm of bladder; Z87.891 Personal history of nicotine dependence; Z15.01 Genetic susceptibility to malignant neoplasm of breast
CPT/HCPCS: 72128; 80048; 85027; 94640; 94760; 96374; 99285